=== PATIENT | male | born 1955 | race Caucasian/White ===

== ENCOUNTER 2019-05-09 12:55 | Emergency (ER) | payer SELFPAY ==
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
[2019-05-09] MEDS ORDERED: CODEINE 30MG/APAP 300MG TAB ONE (15:13)
[2019-05-09] MEDS ORDERED: PROMETHAZINE 25 MG TABLET ONE (15:13)
== END 2019-05-09 15:35 | disposition home or self-care (01) ==
LOC: ER 12:55
DX: S00.90XA Unspecified superficial injury of unspecified part of head, initial encounter (principal); M54.13 Radiculopathy, cervicothoracic region; V43.53XA Car driver injured in collision with pick-up truck in traffic accident, initial encounter; Y93.89 Activity, other specified; Y92.410 Unspecified street and highway as the place of occurrence of the external cause
CPT/HCPCS: 70450; 72125; 99284

== ENCOUNTER 2021-08-29 08:31 | Day surgery (SDC) | payer BC ==
[~2021-08-29 08:31] MED LIST: ALBUMIN HUMAN 25% 300 ML IV ONE
--- NOTE | 2021-08-29 08:35 | RAD REPORT ---
EXAM DESCRIPTION: RAD - Chest Pa And Lat (2 Views) - 08/29/2021 8:30 am CLINICAL HISTORY: Pre Op, hypertension, diabetes, polyp removal COMPARISON: None TECHNIQUE: Frontal and lateral views of the chest were obtained. FINDINGS: The lungs are clear. Heart size is normal and central vasculature is within normal limit s. No pleural effusion or pneumothorax seen. No acute bony finding noted. No aortic abnormality. IMPRESSION: No acute cardiopulmonary process.
[2021-08-29 08:50] LABS: Potassium 3.7 mmol/L (3.5-5.1)
[2021-08-29 09:03] LABS: Absolute Lymphocytes (CBC) 1.9 K/uL (0.7-4.9); Hematocrit 42.8 % (39.6-49.0); Lymphocytes % 26.3 % (15.3-44.8); RBC Red Blood Cell Count 4.89 M/uL (4.33-5.43)
[2021-08-29] MEDS ORDERED: NA CHLORIDE 0.9% 1,000 ML ONE (09:46)
[2021-08-29] MEDS ORDERED: MIDAZOLAM HCL 2 MG/2 ML INJ ONE (10:17)
[2021-08-29] MEDS ORDERED: FENTANYL CITR 100 MCG/2 ML ONE (10:17)
[2021-08-29] MEDS ORDERED: propofoL 200 MG/20 ML VIAL IV ONE (10:17)
[2021-08-29] MEDS ORDERED: LIDOCAINE 2% MPF 5 ML VIAL ONE (10:17)
[2021-08-29] MEDS ORDERED: CEFAZOLIN/NS 1gm 1 GM/50 ML BAG ONE (10:35)
[2021-08-29] MEDS: BUPIVACAINE 0.5% PF 10 ML VIAL ONE ×2 (10:39→11:29)
[2021-08-29] MEDS ORDERED: KETAMINE HCL 500 MG/5 ML VIAL ONE (11:06)
[2021-08-29] MEDS ORDERED: KETOROLAC 30 MG/ML INJ ONE (11:14)
[2021-08-29] MEDS ORDERED: ONDANSETRON 4 MG/2 ML VIAL ONE (11:30)
[2021-08-29] MEDS ORDERED: CODEINE 30MG/APAP 300MG TAB ONE (12:50)
[2021-08-29 13:58] VITALS: BP 133/89; TEMP 97.2; O2SAT 99
--- NOTE | 2021-09-27 15:18 | OP ---
Date of Procedure: 08/29/2021 Surgeon: Reinaldo Verduzco MD Preoperative Diagnosis: Distal perirectal/perianal mass Postoperative Diagnosis: Distal perirectal/perianal mass plus internal and external hemorrhoids. Procedure: EUA, anoscopy, rigid proctoscopy, wide excision of perirectal mass. Findings: Perirectal mass distally. It is a polypoid mass. This is one identified apparently by th e colonoscopy. It is right just proximal to the dentate line and distal rectum proximal anal canal. Polypoid mass. Anesthesia: General plus local. Packing: Surgicel guaze. Indication: This is the case of a 65-year-old patient, comes to us with an abnormal finding on a rec ent colonoscopy after a polypoid mass was found at the area of the anal canal distal rectum. Biopsy showed some abnormalities and a wide resection was requested by the client services coordinator. The patient fully explained the benefits, alternatives, and risks of examination under anesthesia, anoscopy, rigi d proctoscopy, wide excision of perirectal/perianal mass with benefits, alternatives, and risks inclu ding, but not limited to infection, bleeding, damage to adjacent structures, anesthesia complication, recurrence, [place], and even . He also understands this may not relieve any symptoms. He might ne ed more than one surgical intervention. He understood, signed a consent. Procedure In Detail: The patient was brought to the operating room, placed in supine position. Anes thesia was done without complication. The patient was placed in lithotomy position with proper prote ction. A time-out was called. Rectal examination was done, noticed internal hemorrhoids. After yocasta t, I placed a rigid proctoscope all the way up to about 18 cm. We noticed this polypoid lesion to be at the area of the distal rectum proximal anus region right at the dentate line. It is an abnormal polypoid mass based on the discussion we have and the previous scope done. It covered at least with the location of the mass that they were in question. So, at that moment I proceeded to place an anos cope with a window on the side that helped me to identify the anal canal little bit better and the di stal rectum and then we identified the polyp mass, opened the anoderm, trying to go wider resection w ith gross negative margins. Once we have that removed, we proceeded to approximate the anoderm and p art of the dentate line and distal rectum with chromic stitches. Surgicel placed over the area. No bleeding. Mass was sent to pathologist. Local anesthetic was previously applied. The patient janel ated the procedure well. No bleeding. The patient was sent to recovery in stable condition. ISAIAS/LEXA Voice ID: [id number] Report ID: [id number]
--- NOTE | 2021-09-27 15:18 | DS ---
Date of Discharge: 08/29/2021 Diagnosis: Distal rectal mass. Procedures: EUA, anoscopy, wide excision of perirectal/perianal mass. Disposition: Home. Activity: As tolerated. No heavy lifting. Sitz to bath 4 times a day after every bowel movement. The patient advised importance of hemorrhoidal care. Medications: See orders. ISAIAS/LEXA Voice ID: [id number] Report ID: [id number]
== END 2021-08-29 13:45 | disposition home or self-care (01) ==
LOC: OR 08:31
PROVIDERS: ATTEND Surgery
PROC: 0DBQ7ZX Excision of Anus, Via Natural or Artificial Opening, Diagnostic (ICD-10-PCS; principal; 2021-08-29 10:45)
DX: K62.1 Rectal polyp (principal); K64.8 Other hemorrhoids; Z20.822 Contact with and (suspected) exposure to COVID-19
CPT/HCPCS: 46615; 93005 ×2; 85025; 80048; 36415; 82947; 88305; 71046; U0003 ×2; J2704; J2250; J3010; P9047; J0690; J7030; J2405

== ENCOUNTER 2024-04-26 01:44 | Inpatient (IN) | payer MEDICARE, OTHER ==
[2024-04-26] MEDS ORDERED: ONDANSETRON 4 MG/2 ML VIAL ONE (02:28)
[2024-04-26] MEDS ORDERED: MORPHINE 4 MG/ML SYR ONE ×2 (02:28→05:17)
[2024-04-26] MEDS ORDERED: NA CHLORIDE 0.9% 2,000 ML ONE (02:28)
[2024-04-26 02:34] LABS: Absolute Monocytes 1.6 K/uL (0.1-1.3); Absolute Neutrophil 8.2 K/uL (1.8-8.0); Basophils % 0.1 % (0-1.3); Eosinophils % 0.2 % (0-4.4); Hematocrit 53.4 % (39.6-49.0); Hemoglobin 17.8 g/dL (13.6-17.9); Lymphocytes % 9.2 % (15.3-44.8); MCH 30.2 pg (27.0-35.0); MCHC 33.4 g/dL (32.0-36.0); MCV 90.4 fL (80-100); MPV 8.4 fL (7.6-11.3); Monocytes % 14.7 % (3.3-12.3); Neutrophils % 75.8 % (41.7-73.7); Nucleated Red Blood Cells % 0.1 % (0-0); Platelets 259 thou/uL (152-406); RBC Red Blood Cell Count 5.91 M/uL (4.33-5.43); Red Cell Distribution Width 13.2 % (12.1-15.2)
[2024-04-26 02:58] LABS: Albumin 3.8 g/dL (3.4-5.0); Albumin/Globulin Ratio 0.8 (1.1-1.8); Anion Gap 13.5 mEq/L (5.0-15.0); Bilirubin Total 0.9 mg/dL (0.2-1.0); Globulin 4.6 g/dL (2.3-3.5); Potassium 3.5 mEq/L (3.5-5.1); Protein, Total 8.4 g/dL (6.4-8.2)
--- NOTE | 2024-04-26 05:04 | ER ---
Nurse's Notes [facility] Name: Bassam Rodriguez Age: 68 yrs Sex: Male : 1955 Arrival Date: 04/26/2024 Time: 01:44 Bed 2 Private MD: Diagnosis: Acute small bowel obstruction, acute renal insufficiency, moderate dehydration, lactic acidosis Presentation: 04/26 01:54 Chief complaint: Patient states: DEHYDRATION, LEFT SIDED ABD PAIN AND CONSTIPATION X3 jj7 DAYS. Coronavirus screen: At this time, the client does not indicate any symptoms associated with coronavirus-19. Ebola Screen: No symptoms or risks identified at this time. Initial Sepsis Screen: Does the patient meet any 2 criteria? HR > 90 bpm. Yes Does the patient have a suspected source of infection? No. Patient's initial sepsis screen is negative. Risk Assessment: Do you want to hurt yourself or someone else? Patient reports no desire to harm self or others. Onset of symptoms was April 22, 2024. Care prior to arrival: Medication(s) given: Normal saline infusion, 200ML IV initiated. 22 GA, in the right wrist. 01:54 Method Of Arrival: EMS: [facility] jj7 01:54 Acuity: TONY 3 jj7 Triage Assessment: 01:56 General: Appears in no apparent distress. comfortable, Behavior is calm, cooperative, jj7 appropriate for age, SLEEPY. Pain: Complains of pain in abdomen Pain currently is 9 out of 10 on a pain scale. GI: Reports lower abdominal pain, upper abdominal pain, constipation. Historical: - Allergies: 01:56 No Known Allergies; jj7 - PMHx: 01:56 Diabetes - NIDDM; Hyperlipidemia; Hypertension; Myocardial infarction; jj7 - PSHx: 01:56 HERNIA REPAIR (Myocardial infarction); jj7 - Immunization history:: Adult Immunizations not up to date, Client reports having NOT received the Covid vaccine. Flu vaccine is up to date. - Infectious Disease History:: Denies. - Social history:: Smoking status: Patient denies any tobacco usage or history of. Patient/guardian denies using alcohol, street drugs, IV drugs. - Family history:: not pertinent. Screenin:58 [facility] ED Fall Risk Assessment (Adult) History of falling in the last 3 months, jj7 including since admission No falls in past 3 months (0 pts) Confusion or Disorientation No (0 pts) Intoxicated or Sedated No (0 pts) Impaired Gait No (0 pts) Mobility Assist Device Used No (0 pt) Altered Elimination No (0 pt) Score/Fall Risk Level 0 - 2 = Low Risk Oriented to surroundings, Maintained a safe environment, Educated pt \\T\\ family on fall prevention, incl call for assistance when getting out of bed, Assessed \\T\\ reinforced patient's understanding of fall precautions. Abuse screen: Denies threats or abuse. Nutritional screening: No deficits noted. Tuberculosis screening: No symptoms or risk factors identified. Assessment: 01:58 Reassessment: SEE TRIAGE ASSESSMENT. jj7 03:03 Reassessment: PT'S O2 SAT WHILE SLEEPING 86% WHEN QUESTIONED IF HE HAS SLEEP APNEA PT jj7 STATES "I USED TO". O2 2L APPLIED VIA NC. PT TOLERATING WELL. 03:22 Reassessment: Patient appears in no apparent distress at this time. Patient and/or bm8 family updated on plan of care and expected duration. Pain level reassessed. Patient is alert, oriented x 3, equal unlabored respirations, skin warm/dry/pink. General: Appears in no apparent distress. comfortable. Pain: Complains of pain in abdomen Pain currently is 5 out of 10 on a pain scale. 07:03 Reassessment: Patient appears in no apparent distress at this time. No changes from 8 previously documented assessment. Patient and/or family updated on plan of care and expected duration. Pain level reassessed. Patient is alert, oriented x 3, equal unlabored respirations, skin warm/dry/pink. NG tube in place connected to intermittent suction, Bright in place and draining to gravity. 07:45 Reassessment: Patient is alert, oriented x 3, equal unlabored respirations, skin aa5 warm/dry/pink. NG tube clamped for transfer to admitting floor. . Vital Signs: 01:54 BP 135 / 83; Pulse 110; Resp 16; Temp 97.8; Pulse Ox 96% ; Weight 79.38 kg; Height 5 j7 ft. 10 in. ; Pain 9/10; 02:59 BP 111 / 74; Pulse 97; Resp 17; Pulse Ox 86% ; jj7 03:55 BP 115 / 77; Pulse 99; Resp 17; Pulse Ox 96% ; jj7 05:00 BP 152 / 88; Pulse 106; Resp 17; Pulse Ox 90% ; jj7 05:23 Pulse Ox 96% on 4 lpm NC; jj7 06:30 BP 121 / 82; Pulse 103; Resp 16; Pulse Ox 98% ; jj7 07:30 BP 120 / 82; Pulse 100; Resp 16 S; Pulse Ox 97% on R/A; aa5 01:54 Body Mass Index 25.11 (79.38 kg, 177.8 cm) jj7 01:54 Pain Scale: Adult jj7 Vincent Coma Score: 03:22 Eye Response: spontaneous(4). Motor Response: obeys commands(6). Verbal Response: bm8 oriented(5). Total: 15. 22:51 Eye Response: spontaneous(4). Motor Response: obeys commands(6). Verbal Response: sp4 oriented(5). Total: 15. ED Course: 01:52 Patient arrived in ED. rv1 01:53 Dae Davila MD is Attending Physician. sp4 01:56 Triage completed. jj7 01:56 Arm band placed on right wrist. Patient placed in an exam room, on a stretcher. jj7 01:58 Patient has correct armband on for positive identification. Bed in low position. Call jj7 light in reach. Side rails up X2. Provided Education on: USE OF CALL HUERTA. 01:58 Maintain EMS IV. Dressing intact. Good blood return noted. Site clean \\T\\ dry. Gauge \\T\\ jj 7 site: 22G RIGHT WRIST. Flushed with 10 mL NS. 02:28 Lactate w/ 2H reflex if indic. Sent. rv1 02:29 CBC with Diff Sent. rv1 02:29 CMP Sent. rv1 02:29 Lipase Sent. rv1 02:41 Kenan Yip, RN is Primary Nurse. bm8 03:02 Oxygen administration via nasal cannula \\T\\ 2L/min Response to oxygen therapy: symptoms jj7 improved. 03:22 No provider procedures requiring assistance completed. bm8 03:27 Abdomen In Process Unspecified. EDMS 04:45 Bright cath inserted, using sterile technique, 16 Fr., by tn, balloon inflated, to jj7 gravity drainage, returned clear yellow urine. Patient tolerated well. 05:02 Jose Patton MD is Hospitalizing Provider. sp4 05:09 NGT: inserted 14 Fr. via left nare. verified placement of air over stomach, verified jj7 return of gastric contents, to intermittent suction. Returned gastric contents. Patient tolerated well. 07:03 Patient admitted, IV remains in place. bm8 07:04 Report given to BERNIE HADDAD. jj7 Administered Medications: 02:41 Drug: NS 0.9% IV 1000 ml IV at 1 bolus Per protocol; 1000 mL bolus Route: IV; Rate: 1 bm8 bolus; Site: right forearm; 03:24 Follow up: Response: No adverse reaction; IV Status: Completed infusion; IV Intake: bm8 1000ml 02:41 Drug: Ondansetron IVP 4 mg IVP once; over 2 minutes Route: IVP; Site: right forearm; bm8 03:24 Follow up: Response: No adverse reaction bm8 02:41 Drug: morphine IVP or IV 4 mg IVP once over 4 mins Route: IVP; Infused Over: 4 mins; bm8 Site: right forearm; 03:24 Follow up: Response: No adverse reaction bm8 02:41 Drug: NS 0.9% IV 1000 ml IV at 125 ml/hr continuous Route: IV; Rate: 125 ml/hr; Site: bm8 right forearm; 07:05 Follow up: Response: No adverse reaction; IV Status: Completed infusion; IV Intake: bm8 1000ml 05:20 Drug: morphine IVP or IV 4 mg IVP once over 4 mins Route: IVP; Infused Over: 4 mins; jj7 Site: right wrist; 07:05 Follow up: Response: No adverse reaction bm8 05:22 Drug: metoCLOPramide IVP 10 mg IVP once; over 1 to 2 minutes Route: IVP; Site: right jj7 wrist; 07:05 Follow up: Response: No adverse reaction bm8 Medication: 01:58 VIS not applicable for this client. jj7 Intake: 03:24 IV: 1000ml; Total: 1000ml. bm8 07:05 IV: 1000ml; Total: 2000ml. bm8 Outcome: 05:04 Decision to Hospitalize by Provider. sp4 07:03 Admitted to Tele accompanied by nurse, via stretcher, with oxygen, with chart, bm8 07:03 Condition: stable 07:03 Discharge instructions given to patient, Instructed on the need for admit, Demonstrated understanding of instructions, follow-up care, 07:51 Patient left the ED. ll1 Signatures: Dispatcher [employer] EDRenetta Ivory, RN RN aa5 Sera Veras RN RN ll1 Vamsi King RN RN jj7 Herlinda Hernandez rv1 Dae Davila MD MD sp4 Kenan Yip RN RN bm8
--- NOTE | 2024-04-26 05:04 | EDPHYS ---
Physician Documentation [facility] Name: Bassam Rodriguez Age: 68 yrs Sex: Male : 1955 Arrival Date: 04/26/2024 Time: 01:44 Bed 2 Private MD: ED Physician Dae Davila HPI: 04/26 01:53 This 68 yrs old Male presents to ER via Unassigned with complaints of abd pain sp4 . 22:51 Patient presents with 2 days of abdominal pain, abdominal distention and constipation.. sp4 Historical: - Allergies: 01:56 No Known Allergies; jj7 - PMHx: 01:56 Diabetes - NIDDM; Hyperlipidemia; Hypertension; Myocardial infarction; jj7 - PSHx: 01:56 HERNIA REPAIR (Myocardial infarction); jj7 - Immunization history:: Adult Immunizations not up to date, Client reports having NOT received the Covid vaccine. Flu vaccine is up to date. - Infectious Disease History:: Denies. - Social history:: Smoking status: Patient denies any tobacco usage or history of. Patient/guardian denies using alcohol, street drugs, IV drugs. - Family history:: not pertinent. ROS: 22:51 Constitutional: Positive for nausea, positive vomiting positive abdominal pain positive sp4 for abdominal distention 22:51 All other systems are negative, Exam: 22:51 Constitutional: This is a well developed, well nourished patient who is awake, alert, sp4 and in no acute distress. Head/Face: Normocephalic, atraumatic. Eyes: Pupils equal round and reactive to light, extra-ocular motions intact. Lids and lashes normal. Conjunctiva and sclera are not injected. Cornea within normal limits. Periorbital areas with no swelling, redness, or edema. ENT: Nares patent. No nasal discharge, no septal abnormalities noted. Tympanic membranes are normal and external auditory canals are clear. Oropharynx with no redness, swelling, or masses, exudates, or evidence of obstruction, uvula midline. Mucous membranes moist. Neck: Trachea midline, no thyromegaly or masses palpated, and no cervical lymphadenopathy. Supple, full range of motion without nuchal rigidity, or vertebral point tenderness. Chest/axilla: Normal chest wall appearance and motion. Nontender with no deformity. No lesions are appreciated. Cardiovascular: Regular rate and rhythm with a normal S1 and S2. No gallops, murmurs, or rubs. Normal PMI, no JVD. No pulse deficits. Respiratory: Lungs have equal breath sounds bilaterally, clear to auscultation and percussion. No rales, rhonchi or wheezes noted. No increased work of breathing, no retractions or nasal flaring. Abdomen/GI: Soft, with normal bowel sounds. No distension or tympany. No guarding or rebound. No evidence of tenderness throughout. Back: No spinal tenderness. No costovertebral tenderness. Skin: Warm, dry with normal turgor. Normal color with no rashes, no lesions, and no evidence of cellulitis. MS/ Extremity: Pulses equal, no cyanosis. Neurovascular intact. Full, normal range of motion. Neuro: Awake and alert, GCS 15, oriented to person, place, time, and situation. Cranial nerves II-XII grossly intact. Motor strength 5/5 in all extremities. Sensory grossly intact. Psych: Awake, alert, with orientation to person, place and time. Behavior, mood, and affect are within normal limits Vital Signs: 01:54 BP 135 / 83; Pulse 110; Resp 16; Temp 97.8; Pulse Ox 96% ; Weight 79.38 kg; Height 5 jj7 ft. 10 in. ; Pain 9/10; 02:59 BP 111 / 74; Pulse 97; Resp 17; Pulse Ox 86% ; j7 03:55 BP 115 / 77; Pulse 99; Resp 17; Pulse Ox 96% ; j7 05:00 BP 152 / 88; Pulse 106; Resp 17; Pulse Ox 90% ; j7 05:23 Pulse Ox 96% on 4 lpm NC; j7 06:30 BP 121 / 82; Pulse 103; Resp 16; Pulse Ox 98% ; j7 07:30 BP 120 / 82; Pulse 100; Resp 16 S; Pulse Ox 97% on R/A; aa5 01:54 Body Mass Index 25.11 (79.38 kg, 177.8 cm) [facility] 01:54 Pain Scale: Adult [facility] Vincent Coma Score: 03:22 Eye Response: spontaneous(4). Motor Response: obeys commands(6). Verbal Response: bm8 oriented(5). Total: 15. 22:51 Eye Response: spontaneous(4). Motor Response: obeys commands(6). Verbal Response: sp4 oriented(5). Total: 15. MDM: 01:54 Patient medically screened. sp4 04:56 ED course: EXAMINATION: CTABDOMEN PELVIS WITHOUT IV CONTRAST INDICATION: Male, 68 years sp4 old, ABD PAIN COMPARISON(S): None. TECHNIQUE: CT acquisition of the abdomen and pelvis without contrast. Coronal and sagittal reformatted images provided. This exam was performed according to departmental dose-optimization program which includes automated exposure control, adjustment of the mA and/or kV according to patient size, and/or use of iterative reconstruction technique. FINDINGS: SUPPORTIVE DEVICES: None. LOWER CHEST: Mild basilar scarring/atelectasis. Heart size is multivessel coronary atherosclerosis. ABDOMEN AND PELVIS: Lack of intravenous contrast limits evaluation of the abdominal and pelvic viscera and vascular structures. Liver: Small cystic lesions without suspicious features in the left greater than right lobes. Gallbladder and bile ducts: Unremarkable. Pancreas: Unremarkable. Spleen: Unremarkable. Adrenal glands: Unremarkable. Kidneys and ureters: No evidence of stone or obstruction. Moderate bilateral perinephric stranding. Bladder: Nondistended without evident abnormality. Reproductive organs: Absent prostate. Partially imaged portions of a 3 component inflatable penile prosthesis without evidence of complication. GI tract: The distal esophagus is unremarkable. The stomach is distended. The duodenum and proximal small bowel loops are dilated with wall/fold prominence and multiple air-fluid levels. A focal retroumbilical transition point is present (coronal image 24/113) and the more distal small bowel is decompressed. The appendix is normal. The large bowel is normal in caliber without wall thickening. Vessels: Atherosclerosis without evidence of aneurysm. Lymph nodes: No obvious adenopathy. Peritoneum: No evidence of ascites, fluid collection, or free air. Abdominal wall: Umbilical mesh repair. MUSCULOSKELETAL: No acute osseous abnormality. Degenerative change of the spine and pelvis. IMPRESSION: 1. At least high-grade partial small bowel obstruction with transition point in the anterior mid abdomen. In the presence of prior mesh hernia repair, adhesion is suspected. Enteric decompression and surgical consultation recommended. 2. Chronic and incidental findings above. Electronically signed by: Alexander Hutchinson MD 04/26/2024 04:28 AM. 05:01 Differential diagnosis: appendicitis, cholecystitis, Cholelithiasis, diverticulitis, sp4 gastritis, gastroesophageal reflux disease. Data reviewed: vital signs, nurses notes, lab test result(s), radiologic studies. ED course: Patient stable for admission to internal medicine. Consultation to general surgery. 22:51 Consideration of Admission/Observation Patient was admitted/placed on observation. sp4 Escalation of care including admission/observation considered. Management of patient was discussed with the following: Hospitalist: Discussed with Dr. Patton. Gem Technician: Discussed with Dr. Contreras. 22:58 ED course: . 4 04/26 01:54 Order name: CBC with Diff; Complete Time: 04:23 sp 04/26 01:54 Order name: CMP; Complete Time: 04:23 sp 04/26 01:54 Order name: Lipase; Complete Time: 04:23 [facility] 04/26 01:54 Order name: Urinalysis w/ reflexes; Complete Time: 22:57 [facility] 04/26 02:05 Order name: Lactate w/ 2H reflex if indic.; Complete Time: 04:23 [facility] 04/26 05:01 Order name: Ghost Lactate-NO COLLECT Timer; Complete Time: 05:01 [facility] 04/26 06:03 Order name: Urinalysis w/ reflexes [facility] 04/26 06:03 Order name: CBC with Automated Diff [facility] 04/26 06:03 Order name: CBC with Automated Diff [facility] 04/26 06:03 Order name: Comprehensive Metabolic Panel [facility] 04/26 06:03 Order name: Comprehensive Metabolic Panel [facility] 04/26 07:27 Order name: Lactate Sepsis 2 HR Follow-up; Complete Time: 22:57 [facility] 04/26 03:27 Order name: Abdomen [facility] 04/26 06:15 Order name: Chest Single View; Complete Time: 22:57 [facility] 04/26 06:03 Order name: CONS Physician Consult [facility] 04/26 01:54 Order name: IV Saline Lock; Complete Time: 02:28 [facility] 04/26 01:54 Order name: Labs collected and sent; Complete Time: 02:28 [facility] 04/26 04:24 Order name: Bright; Complete Time: 04:46 [facility] 04/26 04:56 Order name: Nasogastric Tube; Complete Time: 05:13 sp4 Administered Medications: 02:41 Drug: NS 0.9% IV 1000 ml IV at 1 bolus Per protocol; 1000 mL bolus Route: IV; Rate: 1 bm8 bolus; Site: right forearm; 03:24 Follow up: Response: No adverse reaction; IV Status: Completed infusion; IV Intake: bm8 1000ml 02:41 Drug: Ondansetron IVP 4 mg IVP once; over 2 minutes Route: IVP; Site: right forearm; bm8 03:24 Follow up: Response: No adverse reaction bm8 02:41 Drug: morphine IVP or IV 4 mg IVP once over 4 mins Route: IVP; Infused Over: 4 mins; bm8 Site: right forearm; 03:24 Follow up: Response: No adverse reaction bm8 02:41 Drug: NS 0.9% IV 1000 ml IV at 125 ml/hr continuous Route: IV; Rate: 125 ml/hr; Site: bm8 right forearm; 07:05 Follow up: Response: No adverse reaction; IV Status: Completed infusion; IV Intake: bm8 1000ml 05:20 Drug: morphine IVP or IV 4 mg IVP once over 4 mins Route: IVP; Infused Over: 4 mins; jj7 Site: right wrist; 07:05 Follow up: Response: No adverse reaction bm8 05:22 Drug: metoCLOPramide IVP 10 mg IVP once; over 1 to 2 minutes Route: IVP; Site: right jj7 wrist; 07:05 Follow up: Response: No adverse reaction bm8 Disposition Summary: 04/26/24 05:04 Hospitalization Ordered Notes: Hospitalization Status: Inpatient Admission sp4 Provider: Jose Patton Location: Telemetry/[facility] (Inpatient) sp4 Condition: Stable sp4 Problem: new sp4 Symptoms: have improved sp4 Bed/Room Type: Standard sp4 Room Assignment: 410(04/26/24 06:36) eb Diagnosis - Acute small bowel obstruction, acute renal insufficiency, moderate dehydration, sp4 lactic acidosis Forms: - Medication Reconciliation Form sp4 - SBAR form sp4 - Leadership Thank You Letter sp4 Signatures: Dispatcher [employer] AURELIANOMA Cesilia Fong Juwairiyah, RN RN jj7 Dae Davila MD MD sp4 Kenan Yip RN RN bm8 Corrections: (The following items were deleted from the chart) 02:06 02:06 LACTATE+C.LAB.BRZ ordered. EDMS EDMS 03:27 01:54 Abdomen Pelvis W Con+CT.RAD.BRZ ordered. EDMS EDMS 06:36 05:04 sp4 eb
[2024-04-26] MEDS ORDERED: METOCLOPRAMIDE 10 MG/2mL INJ ONE (05:16)
[2024-04-26] MEDS ORDERED: ACETAMINOPHEN 650MG/RECT SUPP PR PRN (05:58)
[2024-04-26] MEDS: D5 0.45 NS 1,000 ML IV SCH (06:00)
--- NOTE | 2024-04-26 06:02 | P.HP ---
Certification for Inpatient Patient admitted to: Inpatient With expected LOS: >2 Midnights Practitioner: I am a practitioner with admitting privileges, knowledge of patient current condition, hospital course, and medical plan of care. Services: Services provided to patient in accordance with Admission requirements found in Title 42 Section 412.3 of the Code of Federal Regulations Patient History Date of Service: 04/26/24 Reason for admission: Abdominal pain History of Present Illness: 68 yrs old Male with past medical history of diabetes, hypertension, CAD, hyperlipidemia history of hernia repair brought to ER with abdominal discomfort. Started insidiously. No fever or chills. Associated with nausea and vomiting. No sick contacts. Started having pain in the mid abdomen and radiating diffusely, cramping type, 8 out of 10 in severity associated with distention of the abdomen. Patient was assessed in the ER and was admitted for possible SBO. Allergies No Known Allergies Allergy (Verified 08/29/21 07:53) Home medications list reviewed: Yes Home Medications: Amlodipine Besylate 5 mg PO DAILY 08/29/21 Cholecalciferol (Vitamin D3) [Vitamin D 5,000 Iu Cap] 5,000 unit PO DAILY 08/29/21 Gabapentin 300 mg PO BEDTIME 08/29/21 L. Acidophilus/Bifid. Animalis [Probiotic 5 Billion Cell Cap] 1 each PO BID 08/29/21 Losartan/Hydrochlorothiazide [Losartan-Hctz 50-12.5 mg Tab] 1 each PO DAILY 08/29/21 Metformin ER [Glucophage ER] 500 mg PO BID 08/29/21 Rosuvastatin [Crestor] 10 mg PO BEDTIME 08/29/21 icosapent ethyL [Vascepa 1 gm Cap] 2 gm PO BID 08/29/21 - Past Medical/Surgical History Past Medical History: Reviewed- Non-Contributory -: Diabetes, hypertension, Past Surgical History: Reviewed- Non-Contributory -: Hernia repair - Family History Family History: Reviewed- Non-Contributory - Social History Smoking Status: Never smoker Review of Systems 10-point ROS is otherwise unremarkable Physical Examination - Vital Signs Temperature: 97.2 F Blood Pressure: 138/78 Pulse: 76 Respirations: 18 Pulse Ox (%): 94 - Physical Exam General: Alert, Oriented x3, Mild distress HEENT: Atraumatic, Normocephalic Neck: Supple, JVD not distended Respiratory: Diminished, Crackles/rales Cardiovascular: Normal pulses, Regular rate/rhythm, Normal S1 S2 Capillary refill: <2 Seconds Gastrointestinal: W/out hepatosplenomegaly, Distended, Tenderness Musculoskeletal: No clubbing, No swelling, No contractures Integumentary: No rashes, No tenderness/swelling Neurological: Normal speech, Normal strength at 5/5 x4 extr Lymphatics: No axilla or inguinal lymphadenopathy - Studies Laboratory Data (last 24 hrs) 04/26/24 04/26/24 02:25 02:25 WBC 10.80 Hgb 17.8 Hct 53.4 H Plt Count 259 Sodium 134 L Potassium 3.5 BUN 54 H Creatinine 2.09 H Glucose 200 H Total Bilirubin 0.9 AST 14 L ALT 22 Alkaline Phosphatase 74 Lipase 45 Assessment and Plan - Plan High-grade SBO CT findings noted At least high-grade partial small bowel obstruction with transition point in the anterior mid abdomen. In the presence of prior mesh hernia repair, adhesion is suspected. NG tube to low intermittent wall suction Surgical consult Will keep n.p.o. for now IV fluids Monitor closely Hypertension IV hydralazine as needed Acute kidney injury Hyponatremia CKD stage II Monitor renal parameters Electrolytes monitor and replace accordingly Diabetes Insulin sliding scale Accu-Chek before every meal and at bedtime Lactic acidosis Started on Zosyn Repeat lactic acid levels Hypercalcemia IV hydration Monitor closely under telemetry Acute hypoxic respiratory failure 2 L nasal cannula saturating well Will get an x-ray chest GI/DVT prophylaxis Advanced directive full code Discharge Plan: Home Plan to discharge in: Greater than 2 days - Advance Directives Does patient have a Living Will: No Does patient have a Durable POA for Healthcare: No - Code Status/Comfort Care Code Status: Full Code Time Spent Managing Pts Care (In Minutes): 48
[2024-04-26] MEDS: PIPER TAZO 3.375 GM in NA CHLORIDE 0.9% 100 ML IV SCH (06:13)
[2024-04-26] MEDS ORDERED: GLUCAGON 1 MG/VIAL IM PRN (06:14)
[2024-04-26] MEDS: INSULIN REGULAR (HUMAN) 100 UNIT/ML SQ SCH (07:30)
--- NOTE | 2024-04-26 07:40 | RAD REPORT ---
EXAM DESCRIPTION: RAD - Chest Single View - 04/26/2024 6:40 am CLINICAL HISTORY: SOB Chest pain. COMPARISON: Chest Pa And Lat (2 Views) dated 08/29/2021 FINDINGS: Portable technique limits examination quality. Mild bilateral pulmonary opacities are present likely pulmonary edema. The heart is normal in size. N o displaced fractures.Enteric tube descends into the stomach.
[2024-04-26 08:00] VITALS: BMI 25.2
[2024-04-26 08:15] LABS: Specific Gravity 1.027 (1.005-1.030); Urine Bilirubin NEGATIVE (Negative); Urine Blood Negative (Negative); Urine Clarity Clear (Clear); Urine Color Light-Yellow (Yellow); Urine Glucose 4+ (Over) (Negative); Urine Ketones 1+ (Negative); Urine Microscopic Reflex YN NO UMIC; Urine Nitrite NEGATIVE (Negative); Urine Protein NEGATIVE (Negative); Urine Urobilinogen Normal (Normal)
[2024-04-26] MEDS ORDERED: ONDANSETRON 4 MG/2 ML VIAL IV PRN (08:30)
[2024-04-26] MEDS: ENOXAPARIN 40 MG/0.4 ML SQ SCH (08:53)
--- NOTE | 2024-04-26 11:12 | CON ---
Date of Consultation: 04/26/2024 Reason: Small bowel obstruction. History Of Present Illness: The patient is a 68-year-old gentleman, who had presented to the emergen cy room with 4 to 5-day history of crampy abdominal pain associated with nausea and vomiting. His la st flatus was yesterday and last bowel movement was about 4 days ago. He has not had any similar epi sodes in the past. He denies any sore throat, runny nose, cough, headaches, or dizziness. No chest pain. No fever or chills at this time. The patient has had a hernia repair surgery 6 to 8 years ago in [place]. Review of Systems: Otherwise unremarkable. Past Medical History: Significant for diabetes, hypertension, coronary artery disease, hyperlipidemi a. Past Surgical History: Hernia repair. Allergies: NO ALLERGIES. Social History: The patient does not smoke or drink alcohol. Family History: Noncontributory. Physical Examination: Vital Signs: Stable. He is afebrile. General: He is awake, alert, oriented x3. Head and Neck: No neck masses. No JVD. Throat clear. Neck is supple. Chest: Clear. Heart: S1, S2. Abdomen: Slightly distended. Hypoactive bowel sounds. Diffuse minimal tenderness. No rebound, rig idity, or guarding. No abdominal wall hernia appreciated. Extremities: Adequately perfused, nontender. Neuro: Cranial nerves 2 through 12 are grossly within normal limits. Nonfocal. Diagnostic Data: Shows white count 10.8 with slightly left shift. H and H are 17.8 and 53.4. Chemi stry reviewed, shows BUN and creatinine to be 54 and 2.09. Lactic acid was 2.9. Repeat lactic acid was 1.3. CT of the abdomen and pelvis shows dilated small bowel with a transition point near the ret ro umbilical region where the hernia repair was. There does not appear to be any evidence of ischemi a, pneumatosis, or perforation and the other findings are incidental. Chest x-ray shows NG tube to b e in the proper place. Assessment: Small bowel obstruction, etiology likely adhesions. The patient did state that he ate r aw coconuts and that may have compounded the issue. Recommendation: At this time, we will closely monitor the patient, n.p.o., NG tube, IV fluids, IV an tibiotics, serial abdominal exam. We will repeat the abdominal x-ray in the morning as well as lab a nd re-evaluate the patient. Should he not improve, a small bowel series may be necessary or if he do es not make any progress at all, he may need surgical intervention. Plan of care was discussed in de tail with the patient and . They understand and I answered all of their questions and the care w as discussed with nurse taking care of the patient as well and I will contact Dr. Gonzalez and let him know what our plan is as well. GIL/LEXA Voice ID: [id number] Report ID: [id number]
--- NOTE | 2024-04-26 13:38 | P.PN ---
Date of Service: 04/26/24 Patient seen and examined. Patient complaining of abdominal pain. NG tube with minimal output Patient evaluated by surgery Dr. Contreras. Diagnosis SBO Dr. Contreras input appreciated SBO possibly secondary to adhesions. Continue supportive measures with IV hydration Keep n.p.o. NG tube to KUB in a.m. to reassess bowel obstruction. Hold oral medications for now. Insulin sliding scale for glucose management.
[2024-04-26] MEDS: PNEUMOCOCCAL VACCINE 0.5 ML IMVAC ONE (16:09)
[2024-04-26] MEDS: MORPHINE 2 MG/ML SYR IV PRN (21:42)
[2024-04-27 07:36] LABS: Absolute Eosinophils 0.1 K/uL (0-0.5); Absolute Lymphocytes (CBC) 0.6 K/uL (0.7-4.9); Absolute Monocytes 1.1 K/uL (0.1-1.3); Absolute Neutrophil 4.2 K/uL (1.8-8.0); Basophils % 0.3 % (0-1.3); Eosinophils % 1.4 % (0-4.4); Hematocrit 50.3 % (39.6-49.0); Hemoglobin 16.4 g/dL (13.6-17.9); Lymphocytes % 9.9 % (15.3-44.8); MCH 30.3 pg (27.0-35.0); MCHC 32.6 g/dL (32.0-36.0); MCV 93.2 fL (80-100); MPV 8.6 fL (7.6-11.3); Monocytes % 18.6 % (3.3-12.3); Neutrophils % 69.8 % (41.7-73.7); Platelets 199 thou/uL (152-406); RBC Red Blood Cell Count 5.39 M/uL (4.33-5.43); Red Cell Distribution Width 13.2 % (12.1-15.2)
[2024-04-27 07:51] LABS: Albumin/Globulin Ratio 0.8 (1.1-1.8); Anion Gap 9.2 mEq/L (5.0-15.0); Bilirubin Total 0.6 mg/dL (0.2-1.0); Magnesium 2.6 mg/dL (1.6-2.4); Phosphorus 3.1 mg/dL (2.5-4.9); Potassium 3.2 mEq/L (3.5-5.1)
[2024-04-27] MEDS: KCL 20 MEQ/100 mL IVPB 20 MEQ/100 ML BAG IV SCH (09:02)
--- NOTE | 2024-04-27 09:59 | RAD REPORT ---
EXAM DESCRIPTION: RAD - Abdomen W Erect - 04/27/2024 6:38 am CLINICAL HISTORY: Follow-up of small bowel obstruction COMPARISON: Abdomen Pelvis Wo Contrast dated 04/26/2024; Chest Single View dated 04/26/2024 TECHNIQUE: Single AP view of the abdomen. FINDINGS: Enteric tube terminates in the stomach body. Nonobstructive bowel gas pattern, although relative paucity of bowel gas limits evaluation. No air-fl uid levels, free air, or pneumatosis. No suspicious calcifications. Crescentic opacity along the right lower lobe. No significant bony abnormality. IMPRESSION: Satisfactory positioning of the enteric tube. New crescentic opacity along the right lower lobe, could reflect atelectasis or subdiaphragmatic air. The findings were communicated to Dr. Contreras on 04/27/2024 at 09:56 hours.
--- NOTE | 2024-04-27 11:53 | RAD REPORT ---
EXAM DESCRIPTION: CT - Abdomen Pelvis Wo Contrast - 04/27/2024 11:30 am CLINICAL HISTORY: Small bowel obstruction COMPARISON: Abdomen Pelvis Wo Contrast dated 04/26/2024 TECHNIQUE: Thin cut axial CT imaging of the abdomen and pelvis was performed without IV contrast. Mu ltiplanar reformats were generated and reviewed. All CT scans are performed using dose optimization technique as appropriate and may include automated exposure control or mA/KV adjustment according to patient size. FINDINGS: Segmental dependent bibasilar atelectatic changes. The liver, spleen, and pancreas show no suspicious findings. Gallbladder and biliary tree are also wi thout suspicious finding. Symmetric renal contour, without suspicious parenchymal findings within limits of noncontrast techniq ue. No evidence of radiopaque calculi or hydroureteronephrosis. Enteric tube has been placed, terminating along the body of the stomach. Marked improvement of proxim al small bowel distention, with some residual mild dilation of the left hemiabdomen segmentally dilat ed jejunal loops seen on the prior exam, up to 3.3 cm in caliber, improved from 4.2 cm in caliber on prior CT. Transition point of less abrupt appearance is still seen in the mid abdomen, underlying the hernia repair mesh. Appendix is unremarkable. Penile implant in place. No dilated bowel loops or bow el wall thickening. No free air, free fluid or inflammatory stranding. No hernia, mass or bulky lymph adenopathy. The urinary bladder is decompressed, with Bright catheter in place. No suspicious bony findings. IMPRESSION: Improving small bowel obstruction as above. Satisfactory positioning of the enteric tube . Interval development of segmental dependent airspace opacities, suggesting atelectatic changes. This may explain the recent radiographic findings. Other findings as above.
--- NOTE | 2024-04-27 14:00 | PN ---
Date of Progress Note: 04/27/2024 Subjective: Patient is awake, alert. Has passed a little bit of gas. No nausea or vomiting. Pain is a little better. Objective: Vital Signs: Stable. NG tube put out 500 cc in last shift. Abdomen: Soft. Little less distended. Little bit more bowel sounds than yesterday with still somew hat hypoactive. Minimal tenderness. No rebound. No rigidity. No guarding. Imaging: Abdominal x-ray reviewed with the radiologist and it showed a crescent area of opacity edu g the right lower lobe, could reflect atelectasis or subdiaphragmatic air. After communication with Dr. Deshpande, we ordered a stat CT of the abdomen and pelvis and it was indeed atelectasis and not a fr ee air. The obstruction on the CAT scan also appears to be improving. There were no other significa nt findings on the CAT scan. Laboratory Data: Reviewed. His white count is normal. There is no left shift. Chemistry reviewed. His creatinine is improving as well as the BUN. Potassium is slightly low and it is being replaced . Assessment: Small bowel obstruction, slowly improving. Recommendations: Continue NG tube for today. The patient may have ice chips. Encouraged incentive spirometry. Encouraged patient to ambulate. Continue IV fluids and IV antibiotics. Check labs and x-ray in the morning and serial abdominal exam. Patient is slowly clinically improving. Plan of car e was discussed with the patient's family and Dr. Gonzalez. /MODL Voice ID: [id number] Report ID: [id number]
--- NOTE | 2024-04-27 16:21 | P.PN ---
Subjective Date of Service: 04/27/24 Chief Complaint: Abdominal pain Patient reports significant improvement. He denies abdominal pain. He reports flatus last night NG tube output about 500 mL over 24 hours. Physical Examination - Vital Signs Temperature: 97.1 F Blood Pressure: 166/88 Pulse: 82 Respirations: 20 Pulse Ox (%): 92 Assessment And Plan - Plan Physical examination General: Alert and oriented x3, NAD, HEENT:anicteric sclera, NG tube to suction. Neck: No elevated JVD Heart: Heart sounds 1 and 2 normal, regular rhythm, normal rate, no pedal edema Lungs: Clear to auscultation bilaterally, adequate breath sounds bilaterally, no rhonchi or crackles. Abdomen: Soft, nondistended, nontender, normal bowel sounds. Extremities: No tenderness, no deformity Skin: Normal skin turgor, no rash, no nodules or ulcers. Neuro: No focal motor deficit. Normal speech. Psychiatry: Normal mood, no agitation. Assessment and plan High-grade SBO Suspected to be related to adhesion from prior hernia surgery. Repeat CT abdomen and pelvis shows significant improvement in bowel gas pattern indicating improvement in SBO. General Surgery Dr. Contreras is following. Continue NG tube to low intermittent suction Keep n.p.o. Repeat KUB in a.m. per Dr. Contreras Continue IV fluids Monitor and optimize electrolytes. Acute kidney injury Hyponatremia ERICA is improving with IV hydration Hyponatremia resolved Continue to monitor renal function. Lactic acidosis Likely related to bowel obstruction. Resolved with IV hydration Continue Zosyn Repeat lactic acid levels Hypertension IV hydralazine as needed for BP spike Diabetes Insulin sliding scale Hypercalcemia Secondary to dehydration Resolved IV hydration Acute hypoxic respiratory failure with hypoxia Pulmonary edema Cautious IV hydration Wean oxygen as tolerated. GI/DVT prophylaxis: Lovenox Advanced directive: full code
[2024-04-28] MEDS: INSULIN REGULAR (HUMAN) 100 UNIT/ML SQ SCH (06:00)
[2024-04-28 07:03] LABS: Absolute Eosinophils 0.1 K/uL (0-0.5); Absolute Lymphocytes (CBC) 0.8 K/uL (0.7-4.9); Absolute Monocytes 0.7 K/uL (0.1-1.3); Absolute Neutrophil 3.4 K/uL (1.8-8.0); Basophils % 0.3 % (0-1.3); Eosinophils % 2.1 % (0-4.4); Hematocrit 51.8 % (39.6-49.0); Hemoglobin 16.9 g/dL (13.6-17.9); Lymphocytes % 15.8 % (15.3-44.8); MCH 30.3 pg (27.0-35.0); MCHC 32.6 g/dL (32.0-36.0); MCV 92.8 fL (80-100); MPV 8.6 fL (7.6-11.3); Monocytes % 13.5 % (3.3-12.3); Neutrophils % 68.3 % (41.7-73.7); Platelets 182 thou/uL (152-406); RBC Red Blood Cell Count 5.59 M/uL (4.33-5.43); Red Cell Distribution Width 12.9 % (12.1-15.2)
[2024-04-28 07:17] LABS: Anion Gap 7.4 mEq/L (5.0-15.0); Magnesium 2.7 mg/dL (1.6-2.4); Potassium 3.4 mEq/L (3.5-5.1)
[2024-04-28] MEDS: NA CHLORIDE 0.9% 250 ML ONE (07:57)
[2024-04-28] MEDS ORDERED: KCL 20 MEQ/100 mL IVPB 20 MEQ/100 ML BAG IV SCH (08:00)
--- NOTE | 2024-04-28 08:08 | RAD REPORT ---
EXAM DESCRIPTION: RAD - Abdomen W Erect - 04/28/2024 7:03 am CLINICAL HISTORY: Follow-up small bowel obstruction COMPARISON: Abdomen W Erect dated 04/27/2024 TECHNIQUE: Single AP view of the abdomen. FINDINGS: Persistent mild upper abdominal small bowel distention, with caliber measuring 3.6 cm. No air fluid levels. No suspicious calcifications. No significant bony abnormality. IMPRESSION: Persistent mild upper abdominal small bowel distention, probably stable since CT abdomen of 04/27/2024.
[2024-04-28] MEDS: POTASSIUM CL SA 10 MEQ TAB PO ONE (08:20)
--- NOTE | 2024-04-28 08:51 | PN ---
Date of Progress Note: 04/28/2024 Subjective: The patient is awake, alert. No pain. No nausea. No vomiting. Passing gas, but no jason wel movement. NG tube put out 700 cc in the last shift. Laboratory Data: Reviewed. His BUN and creatinine are improving. White count is normal. There is no left shift. Objective: Vital Signs: Stable. The patient is afebrile. Abdomen: Soft, nondistended, nontender. Positive bowel sounds. Assessment: Small bowel obstruction, improving. Recommendations: We will clamp NG tube and start clear liquids. Encourage ambulation. Incentive sp irometry. Continue fluids and IV antibiotics for the time being. The patient is slowly improving. /MODL Voice ID: [id number] Report ID: [id number]
[2024-04-28 10:15] LABS: Band Neutrophils 3 % (0-1); Differential Total Cells Count 100; Eosinophils 3 % (0-3); Lymphocytes 20 % (15-42); Monocytes 14 % (0-10); Segmented Neutrophils 60 % (40-80)
[2024-04-28 10:16] LABS: Blood Morphology Comment NOT SEEN (NOT SEEN); Platelet Estimate ADEQ; Platelets Clumped FEW
--- NOTE | 2024-04-28 13:01 | RAD REPORT ---
EXAM DESCRIPTION: CT ABDOMEN PELVIS WITHOUT IV CONTRAST CLINICAL HISTORY: Male, 68 years old, ABD PAIN COMPARISON: None. TECHNIQUE: CT acquisition of the abdomen and pelvis without contrast. Coronal and sagittal reformatt ed images provided. This exam was performed according to departmental dose-optimization program which includes automated exposure control, adjustment of the mA and/or kV according to patient size, and/o r use of iterative reconstruction technique. FINDINGS: SUPPORTIVE DEVICES: None. LOWER CHEST: Mild basilar scarring/atelectasis. Heart size is multivessel coronary atherosclerosis. ABDOMEN AND PELVIS: Lack of intravenous contrast limits evaluation of the abdominal and pelvic viscera and vascular struc tures. Liver: Small cystic lesions without suspicious features in the left greater than right lobes. Gallbladder and bile ducts: Unremarkable. Pancreas: Unremarkable. Spleen: Unremarkable. Adrenal glands: Unremarkable. Kidneys and ureters: No evidence of stone or obstruction. Moderate bilateral perinephric stranding. Bladder: Nondistended without evident abnormality. Reproductive organs: Absent prostate. Partially imaged portions of a 3 component inflatable penile pr osthesis without evidence of complication. GI tract: The distal esophagus is unremarkable. The stomach is distended. The duodenum and proximal s mall bowel loops are dilated with wall/fold prominence and multiple air-fluid levels. A focal retroum bilical transition point is present (coronal image 24/113) and the more distal small bowel is decompr essed. The appendix is normal. The large bowel is normal in caliber without wall thickening. Vessels: Atherosclerosis without evidence of aneurysm. Lymph nodes: No obvious adenopathy. Peritoneum: No evidence of ascites, fluid collection, or free air. Abdominal wall: Umbilical mesh repair. MUSCULOSKELETAL: No acute osseous abnormality. Degenerative change of the spine and pelvis. IMPRESSION: 1. At least high-grade partial small bowel obstruction with transition point in the an terior mid abdomen. In the presence of prior mesh hernia repair, adhesion is suspected. Enteric decom pression and surgical consultation recommended. 2. Chronic and incidental findings above. Electronically signed by: Alexander Htuchinson MD 04/26/2024 04:28 AM CDT Due to temporary technical issues with the PACS/Fluency reporting system, reports are being signed by the in house radiologist without review as a courtesy to ensure prompt reporting. The interpreting r adiologist is fully responsible for the content of the report.
[2024-04-28] MEDS: BISACODYL 10 MG RECTAL SUPP PR ONE (14:35)
--- NOTE | 2024-04-28 16:15 | P.PN ---
Subjective Date of Service: 04/28/24 Chief Complaint: Abdominal pain Patient reports passing multiple flatus last night. NG tube output has decreased. He denies abdominal pain. Physical Examination - Vital Signs Temperature: 96.5 F Blood Pressure: 179/89 Pulse: 58 Respirations: 16 Pulse Ox (%): 94 Assessment And Plan - Plan Physical examination General: Alert and oriented x3, NAD, HEENT:NG tube to suction. Neck: No elevated JVD Heart: Heart sounds 1 and 2 normal, regular rhythm, normal rate, no pedal edema Lungs: Clear to auscultation bilaterally, adequate breath sounds bilaterally, no rhonchi or crackles. Abdomen: Soft, nondistended, nontender, normal bowel sounds. Extremities: No tenderness, no deformity Skin: Normal skin turgor, no rash, no nodules or ulcers. Neuro: No focal motor deficit. Normal speech. Psychiatry: Normal mood, no agitation. Assessment and plan High-grade SBO Suspected to be related to adhesion from prior hernia surgery. Repeat CT abdomen and pelvis shows significant improvement in bowel gas pattern indicating improvement in SBO. General Surgery Dr. Contreras is following. KUB 04/28 showed mild small bowel dilatation but stable NG tube clamped, patient started on a clear liquid diet Continue IV fluids Monitor and optimize electrolytes. Dr. Contreras to follow. Acute kidney injury Hyponatremia ERICA resolved with IV hydration Hyponatremia resolved Continue to monitor renal function. Lactic acidosis Likely related to bowel obstruction. Resolved with IV hydration Continue Zosyn Hypertension IV hydralazine as needed for BP spike Resume home antihypertensives. Diabetes Insulin sliding scale Hypercalcemia Secondary to dehydration Resolved IV hydration Acute hypoxic respiratory failure with hypoxia Pulmonary edema Cautious IV hydration Wean oxygen as tolerated. GI/DVT prophylaxis: Lovenox Advanced directive: full code
[2024-04-28] MEDS: D5 0.45 NS 1,000 ML IV SCH (17:11)
[2024-04-28] MEDS: ROSUVASTATIN 10 MG TAB PO SCH (20:48)
[2024-04-28 22:34] VITALS: O2SAT 96
[2024-04-29 07:24] LABS: Anion Gap 6.5 mEq/L (5.0-15.0); Potassium 3.5 mEq/L (3.5-5.1)
[2024-04-29 08:12] VITALS: BP 159/82; TEMP 96.7
[2024-04-29] MEDS: HOME MED (Empagliflozin [Jardiance] 25 MG Tablet) PO SCH (09:00)
[2024-04-29] MEDS: LOSARTAN/HCTZ 50-12.5 PO SCH (09:15)
[2024-04-29] MEDS: ESCITALOPRAM 20 MG TAB PO SCH (09:17)
[2024-04-29] MEDS: AMLODIPINE 5 MG TAB PO SCH (09:17)
--- NOTE | 2024-04-29 10:29 | P.PN ---
Date of Service: 04/29/24 Subjective: Patient is awake and alert. Patient is tolerating diet. Patient had a bowel movement. Patient denies any abdominal pain. Objective: Vital signs stable, afebrile Abdomen: Soft, nondistended, nontender, positive bowel sounds Assessment: Small bowel obstructionresolved Plan: Patient advised to eat small frequent meals and avoid foods that are hard to digest. Patient can follow-up with me on a as needed basis. Should the patient have recurrent partial bowel obstruction patient may benefit from surgical intervention at that point. Plan of care discussed with Dr. Wong and the patient's family. CC:
--- NOTE | 2024-04-29 11:44 | P.DS ---
Admission Date: 04/26/24 Discharge Date: 04/29/24 Disposition: ROUTINE DISCHARGE Reason for Admission: Abdominal pain Consultations: General surgery - Dr. Contreras Brief History of Present Illness: 68 yo M, PMH: diabetes, hypertension, CAD, hyperlipidemia history of hernia repair Patient presented to [facility] ED with abdominal discomfort. Started insidiously. No fever or chills. Associated with nausea and vomiting. No sick contacts. Started having pain in the mid abdomen and radiating diffusely, cramping type, 8 out of 10 in severity associated with distention of the abdomen. Patient was assessed in the ER and was admitted for possible SBO. Hospital Course: Problem List: High-grade SBO Acute hypoxic respiratory failure with hypoxia secondary to Pulmonary edema Acute kidney injury, resolved Hyponatremia, improved Lactic acidosis, improved Hypertension NIDDM2 Hypercalcemia, improved Physician discharge instructions: Patient presented with worsening abdominal pain, nausea/vomiting for 4-5 days, found to be secondary to high-grade small bowel obstruction seen on CT on admission. Patient was evaluated by Dr. Contreras, general surgeon, who recommended medical management with bowel rest, antibiotics, IV hydration, NG tube placement (placed 04/27). Repeat CT on 04/28 demonstrated significant improvement in small bowel obstr uction. NG tube was clamped and removed on 04/28. Patient has been tolerating clear liquid diet without issues since NG tube was removed. He was given 1 time dose of dulcolax and was able to have 3 bowel movements with relief (2 small 1 large sized). Patient was feeling better, abdominal pain resolved, nausea/vomiting resolved, tolerating diet without issues and was deemed stable for discharge. Continue full liquid diet for the next 3-5 days. Can slowly advance diet and incorporate more regular food. Discussed with patient to consider [facility] diet changes. Recommend frequent smaller bite sized meals to reduce further episodes / recurrences Patient received empiric zosyn while hospitalized to cover possible infection. Patient has been afebrile without leukocytosis throughout hospitalization. No evidence of active infection, no need for further antibiotics. During his hospitalization patient was noted to have ERICA on admission with serum creatinine of 2.09 due to dehydration and resolved with hydration. Creatinine on discharge: 1.15. Medications: no new / changes in medications. Continue as previously prescribed. Follow up: PCP 3-5 days Please call to schedule / confirm appointments Physical Exam: GEN: Alert, oriented, NAD CV: Regular rate and rhythm, no edema Pulm: Nonlabored respirations on room air, clear bilaterally ABD: Soft, nontender, nondistended Neuro: Normal speech, normal affect Vital Signs/Physical Exam: Temp Pulse Resp BP Pulse Ox 96.7 F L 60 14 159/82 H 92 04/29/24 08:00 04/29/24 09:17 04/29/24 08:00 04/29/24 09:17 04/29/24 08:00 Laboratory Data at Discharge: WBC 5.00 thou/uL (4.3-10.9) 04/28/24 06:02 Hgb 16.9 g/dL (13.6-17.9) 04/28/24 06:02 Hct 51.8 % (39.6-49.0) H 04/28/24 06:02 Plt Count 182 thou/uL (152-406) 04/28/24 06:02 Sodium 137 mEq/L (136-145) D 04/29/24 06:24 Potassium 3.5 mEq/L (3.5-5.1) 04/29/24 06:24 BUN 24 mg/dL (7-18) H 04/29/24 06:24 Creatinine 1.15 mg/dL (0.70-1.30) 04/29/24 06:24 Glucose 155 mg/dL (74-106) H 04/29/24 06:24 Phosphorus 3.1 mg/dL (2.5-4.9) 04/27/24 06:55 Magnesium 2.7 mg/dL (1.6-2.4) H 04/28/24 06:02 Total Bilirubin 0.6 mg/dL (0.2-1.0) 04/27/24 06:55 AST 11 U/L (15-37) L 04/27/24 06:55 ALT 17 U/L (16-61) 04/27/24 06:55 Alkaline Phosphatase 64 U/L (45-117) 04/27/24 06:55 Lipase 45 U/L (13-75) 04/26/24 02:25 Home Medications: Amlodipine Besylate 5 mg PO DAILY 08/29/21 Losartan/Hydrochlorothiazide [Losartan-Hctz 50-12.5 mg Tab] 1 each PO DAILY 08/29/21 Rosuvastatin [Crestor*] 10 mg PO BEDTIME 08/29/21 Empagliflozin [Jardiance] 25 mg PO DAILY 04/26/24 Escitalopram [Lexapro*] 20 mg PO DAILY 04/26/24 Glipizide [Glipizide ER] 5 mg PO BID 04/28/24 Physician Discharge Instructions: Physician discharge instructions: Patient presented with worsening abdominal pain, nausea/vomiting for 4-5 days, found to be secondary to high-grade small bowel obstruction seen on CT on admission. Patient was evaluated by Dr. Contreras, general surgeon, who recommended medical management with bowel rest, antibiotics, IV hydration, NG tube placement (placed 04/27). Repeat CT on 04/28 demonstrated significant improvement in small bowel obstruction. NG tube was clamped and removed on 04/28. Patient has been tolerating clear liquid diet without issues since NG tube was removed. He was given 1 time dose of dulcolax and was able to have 3 bowel movements with relief (2 small 1 large sized). Patient was feeling better, abdominal pain resolved, nausea/vomiting resolved, tolerating diet without issues and was deemed stable for discharge. Continue full liquid diet for the next 3-5 days. Can slowly advance diet and incorporate more regular food. Discussed with patient to consider [facility] diet changes. Recommend frequent smaller bite sized meals to reduce further episodes / recurrences Patient received empiric zosyn while hospitalized to cover possible infection. Patient has been afebrile without leukocytosis throughout hospitalization. No evidence of active infection, no need for further antibiotics. During his hospitalization patient was noted to have ERICA on admission with serum creatinine of 2.09 due to dehydration and resolved with hydration. Creatinine on discharge: 1.15. Medications: no new / changes in medications. Continue as previously prescribed. Follow up: PCP 3-5 days Please call to schedule / confirm appointments Followup: NONE,NONE [Primary Care Provider] - Time spent managing pt's care (in minutes): 45
== END 2024-04-29 10:32 | disposition home or self-care (01) | DRG 388 ==
LOC: ER 01:44 → 4TH 05:58
PROVIDERS: ADMIT Family Medicine; ATTEND Hospitalist
DX: K56.51 Intestinal adhesions [bands], with partial obstruction (principal); J96.01 Acute respiratory failure with hypoxia; E87.1 Hypo-osmolality and hyponatremia; N17.9 Acute kidney failure, unspecified; E87.20 Acidosis, unspecified; J81.1 Chronic pulmonary edema; K59.00 Constipation, unspecified; E86.0 Dehydration; I12.9 Hypertensive chronic kidney disease with stage 1 through stage 4 chronic kidney disease, or unspecified chronic kidney disease; N18.2 Chronic kidney disease, stage 2 (mild); E11.22 Type 2 diabetes mellitus with diabetic chronic kidney disease; E78.5 Hyperlipidemia, unspecified; E83.52 Hypercalcemia; I25.2 Old myocardial infarction; I25.10 Atherosclerotic heart disease of native coronary artery without angina pectoris; Z23 Encounter for immunization; Z79.84 Long term (current) use of oral hypoglycemic drugs; Z28.310 Unvaccinated for COVID-19; Z79.899 Other long term (current) drug therapy
CPT/HCPCS: 36415; 51702; 71045; 74019; 74176; 80048; 80053; 81003; 82947; 83605; 83690; 83735; 84100; 85025; 90471; 90732; 94010; 94760; 99285; J1650; J2270; J2405; J2543; J2765; J3480; J7030; J7050; J7799